=== PATIENT | female | born 1995 | race Caucasian/White ===

== ENCOUNTER 2020-12-05 16:57 | Emergency (ER) | payer OTHER, SELFPAY ==
[2020-12-05 17:19] VITALS: BP 132/78; PULSE 101; RESP 18; TEMP 36.4; O2SAT 99
--- NOTE | 2020-12-05 17:42 | ED.WOUNDLAC ---
HPI - Wound/Laceration General Chief Complaint: Wound/Laceration Stated Complaint: left thumb pain Time Seen by Provider: 12/05/20 17:49 Source: patient and RN notes reviewed Mode of arrival: ambulatory Limitations: no limitations History of Present Illness HPI narrative: 24 year old female who presents to express care with complaints of soreness and feeling like something is in the sanders aspect at fat pad region of her distal left thumb. Patient states that she was working in the yard and she thinks she has gotten something in her thumb. Small scabbing area noted with tenderness to palpation to the fat pad of her left thumb, no drainage or acute warmth or redness noted. 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 and required IV antibiotic. Patient states that her Tetanus is up to date. Onset (ago): day(s) (2-3 days) Location: other (left thumb distal sanders aspect ) Extremity Location: Left: hand (left distal sanders thumb) Place: home Patient tetanus UTD: Yes Context: accidental Associated symptoms: pain and suspect foreign body present Treatments prior to arrival: other (soaked in [place] oil and water) Related Data Home Medications Medication Instructions Recorded Confirmed No Home Medications 12/05/20 12/05/20 Allergies Allergy/AdvReac Type Severity Reaction Status Date / Time No Known Allergies Allergy Unverified 12/14/14 08:35 Review of Systems Review of Systems: Narrative: CONSTITUTIONAL: Denies fever, chills, or sweats. EYES: Denies visual changes, redness, or discharge. ENT: Denies rhinorrhea, congestion, sore throat, or otalgia. CARDIOVASCULAR: Denies chest pain, palpitations, or edema. RESPIRATORY: Denies cough or dyspnea. GASTROINTESTINAL: Denies abdominal pain, nausea, vomiting, or diarrhea. GENITOURINARY: Denies dysuria or hematuria. SKIN: Denies rash or itching.pain and small scabbing area to distal sanders left thumb MUSCULOSKELETAL: Denies back pain, joint pain, or myalgia. NEUROLOGIC: Denies headache, numbness, or weakness. PSYCHIATRIC:Positive history of anxiety or depression. All systems reviewed & are unremarkable except as noted in HPI and below PMFSH Past Medical History Medical History (Updated 12/10/20 @ 11:39 by Sheri Blanc NP) Anxiety and depression Osteomyelitis right thumb UTI (urinary tract infection) Family History Family History (Updated 12/05/20 @ 18:16 by Sheri Blanc NP) Father Brain cancer Sibling Asthma Social History Social History (Updated 12/10/20 @ 11:40 by Sheri Blanc NP) Smoking status: Former smoker Tobacco type: cigarettes Alcohol intake: never Substance use: never Last use: denies use Living arrangements: with family Gender identity (if verbalized by the patient): Female Comments At time of signature, agree with nursing past medical, surgical, social and family history. There is no relevant family history pertinent to the presenting complaint Exam Narrative: Exam Narrative: GENERAL: Well-appearing, well-nourished, and in no acute distress. HEAD: Normocephalic, atraumatic. EYES: PERRLA and EOMI. ENT: Nares clear, no rhinorrhea or epistaxis. Mucous membranes moist. NECK: Supple.no lymphadenopathy CHEST: Clear to auscultation. No respiratory distress.SAO2 99% on room air. HEART: Regular rate and rhythm. No murmur heard. Normal peripheral pulses. ABDOMEN: Soft, nontender, nondistended, normal active bowel sounds. EXTREMITIES: Normal range of motion. No edema. SKIN: Warm, dry, no rash. small scabbing area to left distal sanders aspect of left thumb with tenderness on palpation, no obvious foreign body noted, no redness, swelling or any drainage. Patient has good circulation sensation and mobility to left hand and left thumb. NEURO: No focal deficits. Alert and oriented x3.anxious Course Vital Signs Vital signs: Vital Signs Temperature 36.4 C L 12/05/20 17:19 Puls
== END 2020-12-05 18:19 | disposition home or self-care (01) ==
PROVIDERS: Emergency Provider Registered Nurse
DX: S61.032A Puncture wound without foreign body of left thumb without damage to nail, initial encounter (principal); X58.XXXA Exposure to other specified factors, initial encounter; Z87.891 Personal history of nicotine dependence
CPT/HCPCS: 99203; G0463